=== PATIENT | female | born 1960 | race Caucasian/White ===

== ENCOUNTER 2017-04-19 12:32 | Emergency (ER) | payer MEDICAID ==
[2017-04-19 12:48] VITALS: BP 163/90
[2017-04-19] MEDS ORDERED: Ketorolac 60 MG/2 ML SDV IM ONE (13:17)
--- NOTE | 2017-04-19 13:22 | EDM.PDOC ---
ED HPI GENERAL MEDICAL PROBLEM - General Chief Complaint: Lower Extremity Injury/Pain Stated Complaint: HURT LT FOOT Time Seen by Provider: 04/19/17 13:13 Source of Information: Reports: Patient, RN Notes Reviewed History Limitations: Reports: No Limitations - History of Present Illness INITIAL COMMENTS - FREE TEXT/NARRATIVE: 56-year-old female presents emergency department today complaint of pain in her left foot she dropped a heavy object on it last night pain was worse this morning Left Feet Pain Score (Numeric/FACES): 7 - Related Data Allergies Allergy/AdvReac Type Severity Reaction Status Date / Time No Known Allergies Allergy Verified 04/16/16 16:29 Home Meds: Home Meds Hydrocodone/Acetaminophen [Hydrocodon-Acetaminophn 10-325] 1 tab PO TID [History] Past Medical History Musculoskeletal History: Reports: Back Pain, Chronic, Fracture, RA - Past Surgical History GI Surgical History: Reports: Cholecystectomy Female Surgical History: Reports: Tubal Ligation Social & Family History - Tobacco Use Smoking Status *Q: Heavy Tobacco Smoker Years of Tobacco use: 35 Packs/Tins Daily: 0.5 - Caffeine Use Caffeine Use: Reports: Tea - Recreational Drug Use Recreational Drug Use: No Review of Systems - Review of Systems Review Of Systems: See Below Musculoskeletal: Reports: Foot Pain ED EXAM, GENERAL - Physical Exam Exam: See Below (What the right call me if I can ED understood Neil corrected and supplies or whatever reason foot pain) Free Text/Narrative:: Examination of left foot I don't appreciate any erythema there is a slight bruise on the top near the first metatarsal mid shaft pedal pulses 2+ full range of motion Exam Limited By: No Limitations General Appearance: Alert ( (), WD/WN, No Apparent Distress Course - Vital Signs Last Recorded V/S: Last Vital Signs Temp 98.4 F 04/19/17 14:03 Pulse 88 04/19/17 14:03 Resp 14 04/19/17 14:03 BP 163/90 H 04/19/17 12:50 Pulse Ox 100 04/19/17 14:03 - Orders/Labs/Meds Meds: Medications Discontinued Medications Generic Name Dose Route Start Last Admin Trade Name Freq PRN Reason Stop Dose Admin Ketorolac Tromethamine 60 mg 04/19/17 13:17 04/19/17 13:43 Toradol IM 04/19/17 13:18 60 mg ONETIME ONE Administration Departure - Departure Time of Disposition: 14:26 Disposition: Home, Self-Care 01 Condition: Good (He has fine [id number]) Clinical Impression: Contusion of bone - Discharge Information Forms: ED Department Discharge Additional Instructions: Continue to use the hard soled shoe for comfort and symptomatic relief, use ibuprofen as needed for pain control in combination with hydrocodone, Please followup with your primary care provider in 3-5 days if not better, please call return to the emergency department with worsening of symptoms. - Assessment/Plan Plan: Assessment Acuity = acute Site and laterality = bone contusion left foot Etiology = secondary to trauma Manifestations = pain Location of injury = Home Lab values = x-ray shows no acute fracture Plan I did review x-ray results with her she had some relief from the Toradol injection plan is to discharge home with a hard soled shoe and continue her hydrocodone as needed follow-up with primary care 3-5 days if no improvement Patient was in agreement with the plan all questions were answered, they were instructed to return to the emergency department or call for worsening symptoms. This note was dictated using [employer] voice recognition software please call with any questions.
--- NOTE | 2017-04-19 14:04 | CR ---
Foot Comp Min 3V Lt INDICATION: pain FINDINGS: Mild hypertrophic change of the talonavicular articulation and first MTP joint. Tiny calca giorgio spurs. Left foot otherwise negative.
== END 2017-04-19 14:41 | disposition home or self-care (01) ==
LOC: JP.ED 12:32
DX: S90.32XA Contusion of left foot, initial encounter (principal); M06.9 Rheumatoid arthritis, unspecified; F17.210 Nicotine dependence, cigarettes, uncomplicated; Z90.49 Acquired absence of other specified parts of digestive tract; W20.8XXA Other cause of strike by thrown, projected or falling object, initial encounter
CPT/HCPCS: 73630; 96372; 99283; J1885